=== PATIENT | female | born 1995 | race Caucasian/White ===

== ENCOUNTER 2018-04-22 09:08 | Emergency (ER) | payer BC ==
[2018-04-22 09:53] VITALS: BP 116/74
--- NOTE | 2018-04-22 10:37 | UC ---
[facility] HPI - HPI Summary HPI Summary: Patient is a 23-year-old female that is scheduled to have her wisdom teeth removed in 2 days. She presents here with a 2 day history of progressively worsening right greater than left lower wisdom tooth pain. She has been taking Motrin. She has a painful flap of gum is growing over her right rear wisdom tooth. He denies any fever or chills. She denies any nausea or vomiting. - History of Current Complaint Chief Complaint: UCDentalProblem Stated Complaint: DENTAL COMPLAINT Hx Obtained From: Patient Hx Last Menstrual Period: 09/15/14 Onset/Duration: Gradual Onset Severity: Severe Pain Intensity: 8 Pain Scale Used: 0-10 Numeric Aggravating Factor(s): Chewing Alleviating Factor(s): Nothing Related History: Swelling Dental: 1 - pericoronitis - Allergies/Home Medications Allergies/Adverse Reactions: Allergies Allergy/AdvReac Type Severity Reaction Status Date / Time No Known Allergies Allergy Verified 10/16/14 11:38 Home Medications: Home Medications Acetaminophen TAB* [Tylenol TAB*] 3 tab PO Q4H PRN 04/22/18 [History Confirmed 04/22/18] Ibuprofen TAB* [Advil TAB*] 200 mg PO Q6H PRN 04/22/18 [History Confirmed ] LevoCETirizine TAB (NF) [Xyzal TAB (NF)] 5 mg PO DAILY 04/22/18 [History Confirmed 04/22/18] Levonorgestrel (Iud) [Mirena IUD] 20 mcg IU ONCE 04/22/18 [History Confirmed ] PMH/Surg Hx/FS Hx/Imm Hx Previously Healthy: Yes - Surgical History Surgical History: Yes Surgery Procedure, Year, and Place: rt shoulder surgery - Family History Known Family History: Positive: Hypertension - Social History Alcohol Use: Occasionally Substance Use Type: None Smoking Status (MU): Never Smoked Tobacco Review of Systems All Other Systems Reviewed And Are Negative: Yes Constitutional: Positive: Negative Skin: Positive: Negative Eyes: Positive: Negative ENT: Positive: Dental Pain Respiratory: Positive: Negative Cardiovascular: Positive: Negative Gastrointestinal: Positive: Negative Genitourinary: Positive: Negative Motor: Positive: Negative Neurovascular: Positive: Negative Musculoskeletal: Positive: Negative Neurological: Positive: Negative Psychological: Positive: Negative Physical Exam Triage Information Reviewed: Yes Appearance: Well-Appearing, No Pain Distress, Well-Nourished Vital Signs: Initial Vital Signs Temp 98.3 F 04/22/18 09:50 Pulse 87 04/22/18 09:50 Resp 14 04/22/18 09:50 BP 116/74 04/22/18 09:50 Pulse Ox 99 04/22/18 09:50 Eyes: Positive: Conjunctiva Clear ENT: Positive: Hearing grossly normal, Uvula midline. Negative: Nasal congestion, TMs normal, Tonsillar swelling, Tonsillar exudate, Trismus, Muffled voice, Hoarse voice Dental: Positive: Other: - perocoronitis #32 Neck: Positive: Supple, Nontender, No Lymphadenopathy Respiratory: Positive: Lungs clear, Normal breath sounds, No respiratory distress Cardiovascular: Positive: RRR, No Murmur Musculoskeletal: Positive: ROM Intact, No Edema Neurological: Positive: Alert Psychological Exam: Normal Skin Exam: Normal Dental Complaint Course/Dx - Differential Dx/Diagnosis Provider Diagnosis: Acute pericoronitis Discharge - Sign-Out/Discharge Documenting (check all that apply): Patient Departure All imaging exams completed and their final reports reviewed: No Studies - Discharge Plan Condition: Stable Disposition: HOME Prescriptions: HYDROcodone/ACETAMIN 5-325 MG* [[place] 5-325 TAB*] 1 tab PO Q4H PRN #15 tab MDD 6 PRN Reason: Pain - Severe Penicillin VK 500 MG TAB(NF) [Penicillin VK 500 mg Tab] 500 mg PO QID #12 tab Patient Education Materials: Toothache (ED) Referrals: Chelo Bateman MD [Primary Care Provider] - Additional Instructions: pericoronitis you may continue ibuprofen Opioid-containing medications can cause drowsiness and sedation. You t should not drive or operate machinery or similar activities while taking this medication. Opioids can also cause a positive drug screen, and can be habit- forming. You should follow the instructions exactly and not take any extra medication. Opioid medications should be stored in a secure manner to avoid diversion or theft. You should not drink alcohol while taking these medications - Billing Disposition and Condition Condition: STABLE Disposition: Home
== END 2018-04-22 10:41 | disposition home or self-care (01) ==
LOC: UCCORT 09:08
DX: K05.20 Aggressive periodontitis, unspecified (principal)
CPT/HCPCS: 99202; G0463